=== PATIENT | male | born 1995 | race Caucasian/White ===

== ENCOUNTER 2021-02-04 12:08 | Emergency (ER) | payer BC ==
[2021-02-04 12:24] VITALS: TEMP 97.9
[2021-02-04 13:37] LABS: Basophils # (A) 0.1 k/uL (0-0.2); Basophils % (A) 1 %; Eosinophils # (A) 0.2 k/uL (0-0.7); Eosinophils % (A) 3 %; HCT 46.6 % (39.0-53.0); HGB 16.1 gm/dL (13.0-17.5); Lymphocytes # (A) 2.1 k/uL (1.0-4.8); Lymphocytes % (A) 36 %; MCH 29.1 pg (25.0-35.0); MCHC 34.5 g/dL (31.0-37.0); MCV 84.3 fL (80.0-100.0); Monocytes # (A) 0.3 k/uL (0-1.0); Monocytes % (A) 5 %; Neutrophils # (A) 3.1 k/uL (1.3-7.7); Neutrophils % (A) 53 %; Platelet Count 230 k/uL (150-450); RBC 5.53 m/uL (4.30-5.90); WBC 5.9 k/uL (3.8-10.6)
[2021-02-04 13:42] LABS: ALT 47 U/L (4-49); AST 32 U/L (17-59); African American GFR (CKD) >90 (>60 ml/min/1.73 sqM); Albumin 4.8 g/dL (3.5-5.0); Alkaline Phosphatase 61 U/L (38-126); Anion Gap 12 mmol/L; Blood Urea Nitrogen 13 mg/dL (9-20); Calcium 10.4 mg/dL (8.4-10.2); Carbon Dioxide 26 mmol/L (22-30); Chloride 105 mmol/L (98-107); Glucose 95 mg/dL (74-99); Lipase 35 U/L (23-300); Non-African American GFR(CKD) >90 (>60 ml/min/1.73 sqM); Potassium 4.4 mmol/L (3.5-5.1); Sodium 143 mmol/L (137-145); Total Bilirubin 1.4 mg/dL (0.2-1.3); Total Protein 8.1 g/dL (6.3-8.2)
[2021-02-04] MEDS ORDERED: KETOROLAC 15 MG/ML 1 ML VIAL IVP STA (13:45)
--- NOTE | 2021-02-04 14:05 | ED ---
Chest Pain HPI - General Chief Complaint: Chest Pain Stated Complaint: chest pain, elevated BP Time Seen by Provider: 02/04/21 13:26 Source: patient, RN notes reviewed Mode of arrival: ambulatory Limitations: no limitations - History of Present Illness Initial Comments: This is a 25-year-old male who presents with complaints of acid of chest pain earlier today he felt as if his blood pressure was going high but he did not have a blood pressure cuff. States the pain is lower midsternal somewhat upper quadrant abdomen. Mild in severity at this time he states this morning he try to take his twins up and the toes as he might pass out because of the pain. Is of a history of Covid positivity earlier this year in October. No cough fevers chills nausea vomiting sweats palpitations no other symptoms he does have a family history of gallbladder disease with a family member the present is similar to what he has today with gallbladder problems no other current complaints or modifying factors MD Complaint: chest pain - Related Data Home Medications Medication Instructions Recorded Confirmed Fluticasone/Salmeterol [Advair 2 puff INHALATION RT-DAILY 02/04/21 02/04/21 250-50 Diskus] Montelukast [Singulair] 10 mg PO HS 02/04/21 02/04/21 Previous Rx's Medication Instructions Recorded Ibuprofen 800 mg PO Q6HR PRN #20 tablet 02/04/21 Allergies Allergy/AdvReac Type Severity Reaction Status Date / Time apple Allergy Unknown Verified 02/04/21 14:13 Review of Systems ROS Statement: Those systems with pertinent positive or pertinent negative responses have been documented in the HPI. ROS Other: All systems not noted in ROS Statement are negative. EKG Findings - EKG Results: EKG: interpreted by URBANO, sinus rhythm (Sinus rhythm with sinus arrhythmia rate 89. Interval 142 QRS 12 QT since QTC 360/[address]-T wave changes) Past Medical History Past Medical History: Asthma Additional Past Medical History / Comment(s): heart murmur History of Any Multi-Drug Resistant Organisms: None Reported Past Surgical History: No Surgical Hx Reported Past Psychological History: ADD/ADHD, Depression Smoking Status: Never smoker Past Alcohol Use History: None Reported Past Drug Use History: None Reported General Exam - General Exam Comments Initial Comments: This is a well-developed well-nourished awake alert oriented times 3 male Limitations: no limitations Course Vital Signs 02/04/21 02/04/21 12:21 14:11 Temperature 97.9 F Pulse Rate 97 82 Respiratory 20 20 Rate Blood Pressure 127/89 142/86 O2 Sat by Pulse 99 99 Oximetry Chest Pain MDM - MDM Reexamination patient reveals no further discomfort at this time he did have reproducible tenderness over the costal sternal costochondral margins. Also the xiphoid I did discuss this with him the presentation is consistent with costochondritis. He will be discharged with instructions for anti- inflammatories gallbladder ultrasound negative for acute findings. Some question in her hepatic cellular disease however the liver enzymes are normal he should follow-up with his Disposition Clinical Impression: Costochondritis, Chest wall syndrome Disposition: HOME SELF-CARE Condition: Good Instructions (If sedation given, give patient instructions): Costochondritis (ED) Prescriptions: Ibuprofen 800 mg PO Q6HR PRN #20 tablet PRN Reason: Pain Is patient prescribed a controlled substance at d/c from ED?: No Referrals: None,Stated [Primary Care Provider] - 1-2 days
--- NOTE | 2021-02-04 14:21 | XR ---
EXAMINATION TYPE: XR chest 2V DATE OF EXAM: 02/04/2021 COMPARISON: NONE HISTORY: Chest and upper abdominal pain for one day. TECHNIQUE: Frontal and lateral views of the chest are obtained. FINDINGS: Overlying EKG leads are present. There is no suspicious focal air space opacity, pleural ef fusion, or pneumothorax seen. The cardiac silhouette size is within normal limits. The osseous str uctures are intact. IMPRESSION: No acute process.
[2021-02-04 14:41] LABS: Amylase 57 U/L (30-110); Creatine Kinase 105 U/L (55-170); Magnesium 1.8 mg/dL (1.6-2.3); Prothrombin Time 10.6 sec (9.0-12.0)
--- NOTE | 2021-02-04 15:14 | US ---
EXAMINATION TYPE: US gallbladder DATE OF EXAM: 02/04/2021 COMPARISON: NONE CLINICAL HISTORY: Abdominal pain, elevated bilirubin. chest pain EXAM MEASUREMENTS: Liver Length: 19.2 cm Gallbladder Wall: 0.2 cm CBD: 0.4 cm Right Kidney: 10.3 x 4.0 x 3.9 cm Pancreas: obscured by bowel gas Liver: intercostal imaging due to bowel gas , there is no evident mass. Liver echotexture somewhat c oarse. Liver is enlarged. Gallbladder: wnl Evidence for sonographic Dowling's sign: no CBD: wnl Right Kidney: wnl IMPRESSION: There are some limitations to the exam. Correlate for hepatocellular disease, hepatic kavon atosis, there is hepatomegaly
[2021-02-04 16:10] VITALS: BP 131/73; PULSE 75; RESP 18
== END 2021-02-04 16:10 | disposition home or self-care (01) ==
LOC: EC 12:08
DX: M94.0 Chondrocostal junction syndrome [Tietze] (principal); J45.909 Unspecified asthma, uncomplicated; F32.9 Major depressive disorder, single episode, unspecified; Z86.16 Personal history of COVID-19
CPT/HCPCS: 36415; 93005; 80053; 82150; 82550; 83690; 83735; 84484; 85025; 85610; 85730; 71046; 76705; 99285; 96374; J1885

== ENCOUNTER 2021-07-12 09:59 | Emergency (ER) | payer BC ==
[2021-07-12 10:10] VITALS: RESP 18; TEMP 98.7
[2021-07-12] MEDS ORDERED: methylPREDNISolone SOD SUCCI 125 MG/2 ML VIAL IM ONE (10:20)
--- NOTE | 2021-07-12 11:15 | XR ---
EXAMINATION TYPE: XR chest 2V DATE OF EXAM: 07/12/2021 COMPARISON: Chest x-ray 02/04/2021 HISTORY: Asthma and cough TECHNIQUE: Frontal and lateral views of the chest are obtained on 3 images. FINDINGS: There is no focal air space opacity, pleural effusion, or pneumothorax seen. The cardiac silhouette size is within normal limits. Patient is rotated. There is a slight spinal curvature. The osseous structures are intact. IMPRESSION: No acute cardiopulmonary process.
--- NOTE | 2021-07-12 11:19 | ED ---
General Adult HPI - General Chief complaint: Upper Respiratory Infection Stated complaint: coughing Time Seen by Provider: 07/12/21 10:11 Source: patient, RN notes reviewed Mode of arrival: ambulatory Limitations: no limitations - History of Present Illness Initial comments: Patient is a 25-year-old male that presents to emergency room complaining of a continuing ALLERGIC reaction. He notes that he let us sleep in his room 2 weeks ago. He notes that he is mildly ALLERGIC to pet dander and cats which caused him to have a ALLERGIC exacerbation. 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 Patient states that he is feeling fine at this time just requesting a Medrol Dosepak to help alleviate his symptoms. He denied any chest pain headache nausea vomiting diarrhea constipation fever fatigue chills. - Related Data Home Medications Medication Instructions Recorded Confirmed Albuterol Nebulized [Ventolin 2.5 mg INHALATION RT-DAILY 07/12/21 07/12/21 Nebulized] Albuterol Sulfate [Albuterol 2 puff PO RT-Q6H PRN 07/12/21 07/12/21 Sulfate Hfa] diphenhydrAMINE HCL [Benadryl] 25 mg PO Q4H PRN 07/12/21 07/12/21 guaiFENesin [Mucinex] 600 mg PO BID PRN 07/12/21 07/12/21 Previous Rx's Medication Instructions Recorded methylPREDNISolone [Medrol Dose 4 mg PO DIRECTED #1 packet 07/12/21 Pack] Allergies Allergy/AdvReac Type Severity Reaction Status Date / Time apple Allergy Unknown Verified 07/12/21 11:29 Review of Systems ROS Statement: Those systems with pertinent positive or pertinent negative responses have been documented in the HPI. ROS Other: All systems not noted in ROS Statement are negative. Past Medical History Past Medical History: Asthma Additional Past Medical History / Comment(s): heart murmur History of Any Multi-Drug Resistant Organisms: None Reported Past Surgical History: No Surgical Hx Reported Additional Past Surgical History / Comment(s): R wrist, nasal Past Psychological History: ADD/ADHD, Depression Smoking Status: Never smoker Past Alcohol Use History: Occasional Past Drug Use History: Marijuana General Exam Limitations: no limitations General appearance: alert, in no apparent distress Head exam: Present: atraumatic, normocephalic, normal inspection Eye exam: Present: normal appearance, PERRL, EOMI. Absent: scleral icterus, conjunctival injection, periorbital swelling ENT exam: Present: normal exam, mucous membranes moist Neck exam: Present: normal inspection Respiratory exam: Present: normal lung sounds bilaterally. Absent: respiratory distress, wheezes, rales, rhonchi, stridor Cardiovascular Exam: Present: regular rate, normal rhythm, normal heart sounds. Absent: systolic murmur, diastolic murmur, rubs, gallop, clicks Extremities exam: Present: normal inspection, full ROM, normal capillary refill. Absent: tenderness, pedal edema, joint swelling, calf tenderness Neurological exam: Present: alert, oriented X3 Psychiatric exam: Present: normal affect, normal mood Skin exam: Present: warm, dry, intact, normal color. Absent: rash Course Vital Signs 07/12/21 10:07 Temperature 98.7 F Pulse Rate 109 H Respiratory 18 Rate Blood Pressure 139/60 O2 Sat by Pulse 96 Oximetry Medical Decision Making - Medical Decision Making 5-year-old male complaining of ALLERGIC reaction to his cat. Chest x-ray, 125 mg of Solu-Medrol ordered. medrol Dosepak be sent to pharmacy. Patient's vital signs are stable, patient discharge with follow-up to primary care supervisor green end department as needed. Case discussed with Dr. Cleveland, patient discharge home with follow-up primary care. - Radiology Data Radiology results: report reviewed, image reviewed Chest x-ray: No acute cardiopulmonary process. Disposition Clinical Impression: Allergic reaction, Asthma Disposition: HOME SELF-CARE Condition: Stable Instructions (If sedation given, give patient instructions): General Allergic Reaction (ED) Prescriptions: methylPREDNISolone [Medrol Dose Pack] 4 mg PO DIRECTED #1 packet Is patient prescribed a controlled substance at d/c from ED?: No Referrals: Kayden Pink MD [Primary Care Provider] - 1-2 days Time of Disposition: 13:01
[2021-07-12 13:43] VITALS: BP 147/82; PULSE 100
== END 2021-07-12 13:43 | disposition home or self-care (01) ==
LOC: EC 09:59
DX: J30.81 Allergic rhinitis due to animal (cat) (dog) hair and dander (principal); F90.9 Attention-deficit hyperactivity disorder, unspecified type; F32.9 Major depressive disorder, single episode, unspecified; F12.90 Cannabis use, unspecified, uncomplicated
CPT/HCPCS: 99283; 96372; 71046; J2930

== ENCOUNTER 2025-04-07 10:54 | Emergency (ER) | payer OTHER ==
[2025-04-07 11:56] LABS: Basophils # (A) 0.05 10*3/uL (0.00-0.10); Basophils % (A) 0.8 %; Eosinophils # (A) 0.14 10*3/uL (0.04-0.35); Eosinophils % (A) 2.3 %; HCT 46.2 % (39.6-50.0); HGB 15.6 g/dL (13.0-17.0); Lymphocytes % (A) 30.9 %; MCH 28.8 pg (27.0-32.0); MCHC 33.8 g/dL (32.0-37.0); MCV 85.2 fL (80.0-97.0); Mean Platelet Volume 10.6 fL (9.5-12.2); Monocytes # (A) 0.48 10*3/uL (0.20-1.00); Monocytes % (A) 7.8 %; Neutrophils # (A) 3.56 10*3/uL (1.80-7.70); Neutrophils % (A) 57.9 %; Platelet Count 225 10*3/uL (140-440); RBC 5.42 10*6/uL (4.40-5.60); RDW 11.8 % (11.5-14.5); WBC 6.15 10*3/uL (4.50-10.00)
--- NOTE | 2025-04-07 12:07 | ED ---
Abdominal Pain HPI - General Source: patient, RN notes reviewed Mode of arrival: ambulatory Limitations: no limitations - History of Present Illness MD Complaint: abdominal pain <Kathrin Archer - Last Filed: 04/07/25 12:06> <Ana Morales - Last Filed: 04/09/25 19:39> - General Chief Complaint: Abdominal Pain Stated Complaint: abd pain Time Seen by Provider: 04/07/25 11:55 - History of Present Illness Initial Comments: Quick Note: This is a 29-year-old male who presents to the emergency department for abdominal pain. Patient reports intermittent lower abdominal pain over the last month. This is occasionally worse on the left side, but states that for the most part it is centralized. He has occasional nausea and vomiting associated with this. He was evaluated here earlier this month for this problem and states that symptoms feel the same. He is waiting for a colonoscopy next month to further investigate this issue. (Kathrin Archer) 29-year-old male presents to the emergency department for evaluation of lower abdominal pain. Patient notes that it is intermittent. He notes that this been going on for the past 1 to 2 months. He does report that he has had recent labs and imaging for the same pain. He denies any change in the pain. Patient would like documentation for his work of the continued pain. She is following with Dr. Marcus and has an appointment in the middle of next month for a colonoscopy. (Ana Morales) - Related Data Home Medications Medication Instructions Recorded Confirmed No Known Home Medications 03/12/25 03/12/25 Allergies Allergy/AdvReac Type Severity Reaction Status Date / Time apple Allergy Unknown Verified 04/07/25 11:05 Review of Systems ROS Other: All systems not noted in ROS Statement are negative. <Kathrin Archer - Last Filed: 04/07/25 12:06> ROS Other: All systems not noted in ROS Statement are negative. <Ana Morales - Last Filed: 04/09/25 19:39> ROS Statement: Those systems with pertinent positive or pertinent negative responses have been documented in the HPI. Past Medical History Past Medical History: Asthma Additional Past Medical History / Comment(s): heart murmur History of Any Multi-Drug Resistant Organisms: None Reported Past Surgical History: No Surgical Hx Reported Additional Past Surgical History / Comment(s): R wrist, nasal Past Psychological History: ADD/ADHD, Depression Smoking Status: Never smoker Past Alcohol Use History: Occasional Past Drug Use History: Marijuana <Kathrin Archer - Last Filed: 04/07/25 12:06> General Exam Limitations: no limitations <Kathrin Archer - Last Filed: 04/07/25 12:06> Limitations: no limitations General appearance: alert, in no apparent distress Head exam: Present: atraumatic, normocephalic, normal inspection Eye exam: Present: normal appearance, PERRL, EOMI. Absent: scleral icterus, c onjunctival injection, periorbital swelling ENT exam: Present: normal exam, mucous membranes moist Neck exam: Present: normal inspection. Absent: tenderness, meningismus, lymphadenopathy Respiratory exam: Present: normal lung sounds bilaterally. Absent: respiratory distress, wheezes, rales, rhonchi, stridor Cardiovascular Exam: Present: regular rate, normal rhythm, normal heart sounds. Absent: systolic murmur, diastolic murmur, rubs, gallop, clicks GI/Abdominal exam: Present: soft, normal bowel sounds. Absent: distended, tenderness, guarding, rebound, rigid Extremities exam: Present: normal inspection, full ROM, normal capillary refill. Absent: tenderness, pedal edema, joint swelling, calf tenderness Neurological exam: Present: alert, oriented X3 Psychiatric exam: Present: normal affect, normal mood Skin exam: Present: warm, dry, intact, normal color. Absent: rash <Ana Morales - Last Filed: 04/09/25 19:39> - General Exam Comments Initial Comments: Visual Physical Exam Vital signs reviewed General: Well-appearing, nontoxic, no acute distress. Head: Normocephalic, atraumatic Eyes: PERRLA, EOMI ENT: Airway patent Chest: Nonlabored breathing Skin: No visual rash, normal skin tone Neuro: Alert and oriented 3 Musculoskeletal: No gross abnormalities (Kathrin Archer) Course Vital Signs 04/07/25 04/07/25 04/07/25 11:03 13:12 14:25 Temperature 98 F 98.1 F Pulse Rate 74 85 77 Respiratory 20 16 18 Rate Blood Pressure 139/96 98/57 111/67 O2 Sat by Pulse 99 98 99 Oximetry Medical Decision Making - Lab Data Result diagrams: 04/07/25 11:30 <Kathrin Archer - Last Filed: 04/07/25 12:06> - Lab Data Result diagrams: 04/07/25 11:30 04/07/25 11:30 <Ana Morales - Last Filed: 04/09/25 19:39> - Medical Decision Making I performed the QuickNote portion of this chart. Signed Kathrin Archer PA-C. (Kathrin Archer) Was pt. sent in by a medical professional or institution ([facility], MANAGER DATA, urgent care, hospital, or senior living...) When possible be specific @ -No Did you speak to anyone other than the patient for history (EMS, parent, family, police, friend...)? What history was obtained from this source @ -No Did you review nursing and triage notes (agree or disagree)? Why? @ -I reviewed and agree with nursing and triage notes Were old charts reviewed (outside hosp., previous admission, EMS record, old EKG, old radiological studies, urgent care reports/EKG's, senior living records)? Report findings @ -I reviewed the prior CT abdomen pelvis which revealed no acute process Differential Diagnosis (chest pain, altered mental status, abdominal pain women, abdominal pain men, vaginal bleeding, weakness, fever, dyspnea, syncope, headache, dizziness, GI bleed, back pain, seizure, CVA, palpatations, mental health, musculoskeletal)? @ -Differential Abdominal Pain Men: Appendicitis, cholecystitis, diverticulosis, ischemic bowel, pancreatitis, hepatitis, UTI, gastroenteritis, AAA, incarcerated hernia, bowel obstruction, constipation, inflammatory bowel, hepatitis, peptic ulcer disease, splenic infarction, perforated viscus, testicular torsion, this is not meant to be an all-inclusive list EKG interpreted by me (3pts min.). @ -None X-rays interpreted by me (1pt min.). @ -None done CT interpreted by me (1pt min.). @ -None done U/S interpreted by me (1pt. min.). @ -None done What testing was considered but not performed or refused? (CT, X-rays, U/S, labs)? Why? @ -None What meds were considered but not given or refused? Why? @ -None Did you discuss the management of the patient with other professionals (professionals i.e. Dr., PA, MANAGER DATA, lab, RT, psych nurse, social security assessor, department clerk, teacher, aviation safety officer, corrections caseworker)? Give summary @ -No Was smoking cessation discussed for >3mins.? @ -No Was critical care preformed (if so, how long)? @ -No Were there social determinants of health that impacted care today? How? (Homelessness, low income, unemployed, alcoholism, drug addiction, transportation, low edu. Level, literacy, decrease access to med. care, [facility], rehab)? @ -No Was there de-escalation of care discussed even if they declined (Discuss DNR or withdrawal of care, Hospice)? DNR status @ -No What co-morbidities impacted this encounter? (DM, HTN, Smoking, COPD, CAD, Cancer, CVA, ARF, Chemo, Hep., AIDS, mental health diagnosis, sleep apnea, morbid obesity)? @ -None Was patient admitted / discharged? Hospital course, mention meds given and route, prescriptions, significant lab abnormalities, going to OR and other pertinent info. @ -Discharge. Patient presented emergency department for evaluation of abdominal pain. Laboratory studies obtained revealing no significant leukocytosis,Hemoglobin 15.6; CMP is nonactionable UA shows no evidence of infectious process. CT was considered patient reports that the pain is the same as when he had the CT performed initially and is just requesting documentation for his work. Patient will be discharged home advised follow-up to Dr. Gracia. He is understanding agreeable plan. Patient stable at time of discharge. Case discussed with Dr. Cleveland Undiagnosed new problem with uncertain prognosis? @ -No Drug Therapy requiring intensive monitoring for toxicity (Heparin, Nitro, Insulin, Cardizem)? @ -No Were any procedures done? @ -No Diagnosis/symptom? @ -abdominal pain Acute, or Chronic, or Acute on Chronic? @ -acute Uncomplicated (without systemic symptoms) or Complicated (systemic symptoms)? @ -uncomplicated Side effects of treatment? @ -No Exacerbation, Progression, or Severe Exacerbation? @ -No Poses a threat to life or bodily function? How? (Chest pain, [place], [place], pneumonia, PE, COPD, DKA, ARF, appy, cholecystitis, CVA, Diverticulitis, Homicidal, Suicidal, threat to staff... and all critical care pts) @ -No ([email or web address]) - Lab Data Lab Results 04/07/25 04/07/25 04/07/25 Range/Units 11:27 11:30 11:30 WBC 6.15 (4.50-10.00) 10*3/uL RBC 5.42 (4.40-5.60) 10*6/uL Hgb 15.6 (13.0-17.0) g/dL Hct 46.2 (39.6-50.0) % MCV 85.2 (80.0-97.0) fL MCH 28.8 (27.0-32.0) pg MCHC 33.8 (32.0-37.0) g/dL Plt Count 225 (140-440) 10*3/uL MPV 10.6 (9.5-12.2) fL Immature Gran % (Auto) 0.3 % Neutrophils % 57.9 % Lymphocytes % 30.9 % Monocytes % 7.8 % Eosinophils % 2.3 % Basophils % 0.8 % Immature Gran # 0.02 (0.00-0.04) 10*3/uL Neutrophils # 3.56 (1.80-7.70) 10*3/uL Lymphocytes # 1.90 (0.90-5.00) 10*3/uL Monocytes # 0.48 (0.20-1.00) 10*3/uL Eosinophils # 0.14 (0.04-0.35) 10*3/uL Basophils # 0.05 (0.00-0.10) 10*3/uL Sodium 138 (137-145) mmol/L Potassium 4.6 (3.5-5.1) mmol/L Chloride 102 (98-107) mmol/L Carbon Dioxide 30 (22-30) mmol/L Anion Gap 6 mmol/L BUN 16 (9-20) mg/dL Creatinine 1.08 (0.66-1.25) mg/dL Est GFR (CKD-EPI)AfAm >90 (>60 ml/min/1.73 sqM) Est GFR (CKD-EPI)NonAf >90 (>60 ml/min/1.73 sqM) Glucose 95 (74-99) mg/dL Calcium 10.1 (8.4-10.2) mg/dL Total Bilirubin 1.5 H (0.2-1.3) mg/dL AST 33 (17-59) U/L ALT 49 (4-49) U/L Alkaline Phosphatase 60 (38-126) U/L Total Protein 7.9 (6.3-8.2) g/dL Albumin 4.8 (3.5-5.0) g/dL Urine Color Yellow Urine Appearance Clear (Clear) Urine pH 6.5 (5.0-8.0) Ur Specific [place] 1.024 (1.001-1.035) Urine Protein Negative (Negative) Urine Glucose (UA) Negative (Negative) Urine Ketones Negative (Negative) Urine Blood Negative (Negative) Urine Nitrite Negative (Negative) Urine Bilirubin Negative (Negative) Urine Urobilinogen <2.0 (<2.0) mg/dL Ur Leukocyte Esterase Negative (Negative) Disposition <Kathrin Archer - Last Filed: 04/07/25 12:06> Is patient prescribed a controlled substance at d/c from ED?: No <Ana Morales - Last Filed: 04/09/25 19:39> Clinical Impression: Abdominal pain Disposition: HOME SELF-CARE Condition: Stable Instructions (If sedation given, give patient instructions): Abdominal Pain (ED) Additional Instructions: Please follow up with your doctor for your colonoscopy. Return to the emergency department for new or worsening symptoms. Referrals: Ethan Bello MD [Primary Care Provider] - 1-2 days
[2025-04-07 12:12] LABS: ALT 49 U/L (4-49); AST 33 U/L (17-59); African American GFR (CKD) >90 (>60 ml/min/1.73 sqM); Albumin 4.8 g/dL (3.5-5.0); Alkaline Phosphatase 60 U/L (38-126); Anion Gap 6 mmol/L; Blood Urea Nitrogen 16 mg/dL (9-20); Calcium 10.1 mg/dL (8.4-10.2); Carbon Dioxide 30 mmol/L (22-30); Chloride 102 mmol/L (98-107); Glucose 95 mg/dL (74-99); Non-African American GFR(CKD) >90 (>60 ml/min/1.73 sqM); Potassium 4.6 mmol/L (3.5-5.1); Sodium 138 mmol/L (137-145); Total Bilirubin 1.5 mg/dL (0.2-1.3); Total Protein 7.9 g/dL (6.3-8.2)
[2025-04-07 13:17] LABS: Appearance,Urine Clear (Clear); Bilirubin,Urine Negative (Negative); Blood,Urine Negative (Negative); Color,Urine Yellow; Glucose,Urine (UA) Negative (Negative); Ketones,Urine Negative (Negative); Leukocyte Esterase,Urine Negative (Negative); Nitrite,Urine Negative (Negative); PH, Urine 6.5 (5.0-8.0); Protein,Urine Negative (Negative); Specific Gravity,Urine 1.024 (1.001-1.035); Urobilinogen,Urine <2.0 mg/dL (<2.0)
[2025-04-07 13:20] VITALS: BP 111/67; PULSE 77; RESP 18; TEMP 98.1
[2025-04-07] MEDS: ONDANSETRON 4 MG/2 ML VIAL IVP STA (13:34)
== END 2025-04-07 14:25 | disposition home or self-care (01) ==
LOC: EC 10:54
DX: R10.30 Lower abdominal pain, unspecified (principal); Z91.018 Allergy to other foods
CPT/HCPCS: 36415; 80053; 85025; 81003; 99284; 96374; J2405

== ENCOUNTER 2025-04-27 08:35 | Day surgery (SDC) | payer OTHER ==
[2025-04-27] MEDS: IV FLUID CONTINUATION 1,000 ML IV ONE ×2 (08:52→09:41)
[2025-04-27 08:59] VITALS: TEMP 97.8
[2025-04-27] MEDS: LACTATED RINGERS 1,000 ML IV SCH (09:12)
[2025-04-27] MEDS ORDERED: PROPOFOL 10 MG/ML 20 ML VIAL IV ONE (09:42)
--- NOTE | 2025-04-27 10:05 | P.PCN ---
Date of Procedure: 04/27/25 Preoperative Diagnosis: Blood in stool Family history of colon cancer Postoperative Diagnosis: Blood in stool Family history of colon cancer Internal hemorrhoid Procedure(s) Performed: Colonoscopy Anesthesia: MAC Surgeon: Trena Alvarez Pathology: none sent Condition: stable Disposition: same day Indications for Procedure: 29-year-old male presents for colonoscopy. He has a family history of colon cancer with his great grandfather and grandfather. His father has a history of polyps. He has had recent multiple episodes of blood in his stool and lower abdominal cramping. Risks, benefits alternatives provided to the patient. All questions answered prior to attending endoscopy suite. Operative Findings: Overall normal-appearing colon Internal hemorrhoid Description of Procedure: The patient was brought to the endoscopy suite and placed in left lateral decubitus position and adequate sedation was achieved using conscious sedation. Digital rectal exam was performed and mild internal hemorrhoids were palpated. An endoscope was then placed in the rectum and advanced to the cecum as identified by landmarks including the appendiceal orifice and the ileocecal valve. The prep was good. The colonoscope was then slowly withdrawn, examining for any mucosal abnormalities. The cecum, ascending, transverse, descending and sigmoid colon were visualized adequately. There were no large neoplastic lesions noted throughout the colon. No obvious polyps noted throughout the colon. No significant diverticulosis. Hemostasis was maintained. Retroflexion was performed in the rectum and internal hemorrhoid. Excess air was removed, the colonoscope withdrawn and the procedure terminated. The patient was then transferred to the recovery unit in stable condition. Repeat colonoscopy should be performed in 5 years due to family history.
[2025-04-27 11:09] VITALS: BP 133/83; PULSE 72; RESP 14
== END 2025-04-27 11:17 | disposition home or self-care (01) ==
LOC: ORWHC2ENDO 08:35
PROVIDERS: ATTEND Surgery
DX: K92.1 Melena (principal); K64.8 Other hemorrhoids; Z80.0 Family history of malignant neoplasm of digestive organs; Z83.719 Family history of colon polyps, unspecified; J45.909 Unspecified asthma, uncomplicated; Z91.018 Allergy to other foods
CPT/HCPCS: 45378; J2704